=== PATIENT | male | born 1990 | race Caucasian/White ===

== ENCOUNTER 2024-12-03 11:15 | Emergency (ER) | payer BC ==
[~2024-12-03] VITALS: Ht 172.7 cm; Wt 80.7 kg
[2024-12-03 11:25] VITALS: TEMP 97.8
[2024-12-03] MEDS: DEXAMETHASONE SOD PHOS 10 MG/1 ML VIAL IV ONE (12:20)
[2024-12-03] MEDS: KETOROLAC TROMETHAMINE 30 MG/ML VIAL IV STA (12:21)
[2024-12-03] MEDS: LACTATED RINGER'S 1,000 ML INJ ONE (12:21)
[2024-12-03 13:00] VITALS: PULSE 72; RESP 18; O2SAT 99
[2024-12-03] MEDS ORDERED: TRIAMCINOLONE A15 G1 TOP (13:05)
== END 2024-12-03 13:17 | disposition home or self-care (01) ==
LOC: ER 11:19
DX: L23.7 Allergic contact dermatitis due to plants, except food (principal)
CPT/HCPCS: 99283; J1100; J1885; J7121